=== PATIENT | female | born 2000 | race Two or more races ===

== ENCOUNTER 2021-12-29 10:40 | Emergency (ER) | payer SELFPAY ==
[~2021-12-29] VITALS: Ht 162.6 cm; Wt 100.0 kg
[2021-12-29 12:07] VITALS: BP 141/85
[2021-12-29] MEDS ORDERED: TETANUS-DIPTH-ACEL PERTUSSIS 0.5ML SYR Tdap IM ONE (12:15)
[2021-12-29] MEDS ORDERED: CEPH-509 PO (12:24)
[2021-12-29] MEDS ORDERED: NAPR500T31 PO (12:24)
== END 2021-12-29 18:56 | disposition home or self-care (01) ==
LOC: ER 10:40
DX: S61.211A Laceration without foreign body of left index finger without damage to nail, initial encounter (principal); S61.213A Laceration without foreign body of left middle finger without damage to nail, initial encounter; W26.9XXA Contact with unspecified sharp object(s), initial encounter; Y93.89 Activity, other specified; Y92.89 Other specified places as the place of occurrence of the external cause; Y99.8 Other external cause status
CPT/HCPCS: 12002; 90471; 90715